=== PATIENT | male | born 1985 | race Caucasian/White ===

== ENCOUNTER 2018-11-13 21:07 | Emergency (ER) | payer MEDICARE, OTHER ==
[~2018-11-13] VITALS: Ht 177.8 cm; Wt 81.6 kg
--- NOTE | 2018-11-13 21:23 | PHYS DOC ---
Adult General Chief Complaint Chief Complaint: CHEST PAIN HPI HPI Patient is a 33-year-old male who presents with complaint of chest pain or shortness of breath for the last few weeks. Patient indicates that he was recently seen at the [facility] for the same complaint and states that they did tests to include x-rays but he states that they didn't tell him anything or do anything about it. When asked if they found nothing wrong, patient responded that he guesses that they didn't find anything because they didn't tell him anything. Patient rates pain as moderate stating that it feels like he just can't breathe. He denies any nausea, vomiting or diaphoresis. He also indicates that he has had a cough that is dry. He denies any lower extremity pain or swelling. Patient states that nothing improves the symptoms and exertion worsens the symptoms.[] Review of Systems Review of Systems Constitutional: Denies fever or chills [] Respiratory: Positive cough and shortness of breath [] Cardiovascular: No additional information not addressed in HPI [] GI: Denies abdominal pain, nausea, vomiting or diarrhea [] Integument: Denies rash or skin lesions [] Neurologic: Denies headache, focal weakness or sensory changes [] All other systems were reviewed and found to be within normal limits, except as documented in this note. Allergies Allergies Allergies Coded Allergies Type Severity Reaction Last Updated Verified No Known Drug Allergies 11/13/18 No Physical Exam Physical Exam Constitutional: Well developed, well nourished, no acute distress, non-toxic appearance. [] HENT: Normocephalic, atraumatic, bilateral external ears normal, oropharynx moist, no oral exudates, nose normal. [] Eyes: PERRLA, EOMI, conjunctiva normal, no discharge. [] Neck: Normal range of motion, no tenderness, supple, no stridor. [] Cardiovascular: Regular rate and rhythm[] Lungs & Thorax: Bilateral breath sounds clear to auscultation [] Abdomen: Bowel sounds normal, soft, no tenderness. [] Skin: Warm, dry, no erythema, no rash. [] Extremities: No tenderness, no cyanosis, no clubbing, ROM intact, no edema. [] Neurologic: Alert and oriented X 3, no focal deficits noted. [] EKG EKG EKG demonstrates normal sinus rhythm with rate of 76.[] Radiology/Procedures Radiology/Procedures [] Impressions: PROCEDURE: CHEST PA & LATERAL CHEST PA LATERAL History: Chest pain Comparison: None. Findings: No consolidation or pleural effusion. Normal heart size. Impression: 1. No acute cardiopulmonary process. Electronically signed by: Riley Mckenzie DO (11/13/2018 9:53 PM) [facility] Course & Med Decision Making Course & Med Decision Making Pertinent Labs and Imaging studies reviewed. (See chart for details) [] Dragon Disclaimer Dragon Disclaimer This electronic medical record was generated, in whole or in part, using a voice recognition dictation system. Departure Departure: Impression: Primary Impression: Atypical chest pain Additional Impression: Cough Disposition: 01 HOME, SELF-CARE Condition: STABLE Patient Instructions: Chest Pain (Nonspecific), Cough, Adult Problem Qualifiers KETURAH PEACOCK Jr., DO Nov 13, 2018 21:23
[2018-11-13] MEDS ORDERED: IV NORMAL SALINE 1,000ML 1,000 ML IV SCH (21:30)
[2018-11-13 21:54] LABS: BASO % 1 % (0-3); EOS # 0.1 x10^3/uL (0.0-0.7); EOS % 2 % (0-3); HEMATOCRIT 48.7 % (39.0-53.0); HEMOGLOBIN 16.4 g/dL (13.0-17.5); LYMPH # 2.4 x10^3/uL (1.0-4.8); LYMPH % 33 % (24-48); MEAN CORPUSCULAR HEMOGLOBIN 32 pg (25-35); MEAN CORPUSCULAR HGB CONC 34 g/dL (31-37); MEAN CORPUSCULAR VOLUME 95 fL (79-100); MONO # 0.7 x10^3/uL (0.0-1.1); MONO % 10 % (0-9); NEUT % 55 % (31-73); PLATELET COUNT 187 x10^3/uL (140-400); RED BLOOD COUNT 5.11 x10^6/uL (4.30-5.70); RED CELL DISTRIBUTION WIDTH 13.5 % (11.5-14.5); WHITE BLOOD COUNT 7.3 x10^3/uL (4.0-11.0)
--- NOTE | 2018-11-13 21:56 | RAD ---
CHEST PA LATERAL History: Chest pain Comparison: None. Findings: No consolidation or pleural effusion. Normal heart size. Impression: 1. No acute cardiopulmonary process. Electronically signed by: Riley Mckenzie DO (11/13/2018 9:53 PM) [facility]
[2018-11-13 21:58] LABS: BARBITURATES NEG (NEG); BENZODIAZEPINES NEG (NEG); CANNABINOIDS NEG (NEG); COCAINE NEG (NEG); METHADONE NEG (NEG); OPIATES NEG (NEG); PHENCYCLIDINE NEG (NEG)
[2018-11-13 22:03] LABS: AMPHETAMINE/METHAMPHETAMINE NEG (NEG)
[2018-11-13 22:11] LABS: BILIRUBIN,URINE NEG (NEG); CLARITY,URINE CLEAR; COLOR,URINE STRAW; GLUCOSE,URINE NEG (NEG)
[2018-11-13 22:12] LABS: BACTERIA,URINE 0 /HPF (0-FEW); NITRITE,URINE NEG (NEG); RBC,URINE 0 /HPF (0-2); SQUAMOUS EPITHELIAL CELL,UR OCC /LPF; UROBILINOGEN,URINE 0.2 mg/dL (0.2 mg/dL); WBC,URINE 0 /HPF (0-4)
[2018-11-13 22:24] LABS: ALBUMIN 4.5 g/dL (3.4-5.0); ALBUMIN/GLOBULIN RATIO 1.4 (1.0-1.7); CALCIUM 9.2 mg/dL (8.5-10.1); CREATININE 1.2 mg/dL (0.7-1.3); GFR 69.3; MAGNESIUM 2.4 mg/dL (1.8-2.4); POTASSIUM 3.7 mmol/L (3.5-5.1); TOTAL BILIRUBIN 0.6 mg/dL (0.2-1.0); TOTAL PROTEIN 7.8 g/dL (6.4-8.2)
[2018-11-13 22:48] VITALS: BP 127/72
--- NOTE | 2018-11-14 12:16 | EKG ---
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
== END 2018-11-13 23:28 | disposition home or self-care (01) ==
LOC: ER 21:07
DX: R07.89 Other chest pain (principal); R06.02 Shortness of breath
CPT/HCPCS: 36415; 71046; 80053; 80307; 81001; 83690; 83735; 83880; 84443; 84484; 85025; 85379; 93005; 99285-25; J7030

== ENCOUNTER 2019-06-02 19:44 | Emergency (ER) | payer OTHER ==
[~2019-06-02] VITALS: Ht 177.8 cm; Wt 81.0 kg
--- NOTE | 2019-06-02 19:46 | PHYS DOC ---
Past History Past Medical History: No Pertinent History Past Surgical History: Other Additional Past Surgical Histo: DISC REPLACEMENT X 2 Alcohol Use: Occasionally Drug Use: None Adult General Chief Complaint Chief Complaint: "..I ve been sick the last three days.. Cough, fever or chills,,.. Green sputum... Congestion runny nose... And now chest pain all day... Here on the left... Is somewhat like when I was here before and he checked me out in October..." [facility] HPI Patient is a 33 year old male who presents with above hx and complaints productive cough with green sputum, myalgia, malaise, congestion, rhinorrhea, sore throat, arthralgia, and now left-sided chest pain. Chest pain is non radiating. There is reproducible with cough. Localized to the left pectoral anterior axillary line on left. No history of trauma. Patient unsure if he had a flu vaccination this season. No recent travel outside of the [place] area. No specific ill contacts. Patient does not smoke. No previous history of DVT or pulmonary embolism. Is unsure of his family history but thinks his grandfather had an CO at age 65-70. Patient is adopted no family history. Patient currently works at the [employer] [facility] [employer] [facility]. Patient denies any history immunosuppression. Pt. last seen 11/13/2018 for Atypical Chest pain and cough. Pt has hx of possible sleep disorder and sleep apnea. Pt. 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 Review of Systems Review of Systems Constitutional: Subjective history of fever or chills [] Eyes: Denies change in visual acuity, redness, or eye pain [] HENT: Complaints of nasal congestion and sore throat [] Respiratory: Complaints of cough, wheezing and shortness of breath [] Cardiovascular: No additional information not addressed in HPI [] GI: Denies abdominal pain, nausea, vomiting, bloody stools or diarrhea [] : Denies dysuria or hematuria [] Musculoskeletal: Denies back pain or joint pain [] Integument: Denies rash or skin lesions [] Neurologic: Denies headache, focal weakness or sensory changes [] Endocrine: Denies polyuria or polydipsia [] All other systems were reviewed and found to be within normal limits, except as documented in this note. Family History Family History Grandfather had heart attack at age 65-70. Limited family history because he is adopted Current Medications Current Medications See nursing for home meds Allergies Allergies Allergies Coded Allergies Type Severity Reaction Last Updated Verified No Known Drug Allergies 11/13/18 No Physical Exam Physical Exam Constitutional: Well developed, well nourished, moderate acute distress, non- toxic appearance. [] HENT: Normocephalic, atraumatic, bilateral external ears normal, oropharynx moist, injected pharynx with postnasal drainage, no oral exudates, nose swollen turbinates and clear rhinorrhea Eyes: PERRLA, EOMI, conjunctiva normal, no discharge. [] Neck: Normal range of motion, no tenderness, supple, no stridor. Old surgery scar. Cardiovascular: Bradycardia Heart rate regular rhythm, no murmur [] Lungs & Thorax: Bilateral breath sounds equal apexes with only a few scattered wheezes auscultation [] Abdomen: Bowel sounds normal, soft, no tenderness, no masses, no pulsatile masses. [] Skin: Warm, dry, no erythema, no rash. [] Back: No tenderness, no CVA tenderness. [] Extremities: No tenderness, no cyanosis, no clubbing, ROM intact, no edema. [] No cording in legs appreciated Neurologic: Alert and oriented X 3, normal motor function, normal sensory function, no marked focal deficits noted. DTR + 2 brachial and patella. Ambulatory without problems. ( Does have hx of some neuropathy in Rt. arm from previous neck injury and surgery.) Psychologic: Affect anxious, judgement normal, mood normal. [] EKG EKG My interpretation EKG shows a sinus bradycardia 58 bpm. Does have a right bundle-branch block. Similar contour abnormalities anterior lateral leads. But no findings of acute STEMI with contralateral changes.[] Radiology/Procedures Radiology/Procedures [Reviewed reading of chest x-ray. Does have findings of neck surgery and object in left axillary area.] [address] [address] IMAGING REPORT Signed PATIENT: JOVANY SRIVASTAVA: [id number] : 1985 LOCATION: ER AGE: 33 SEX: M EXAM STATUS: REG ER ORD. PHYSICIAN: ZULEYMA CLAIRE MD REASON: Ekg cp PROCEDURE: CHEST PA & LATERAL CHEST PA LATERAL History: Chest pain Comparison: November 13, 2018 Findings: 2 views of the chest are submitted. There is no infiltrate, pneumothorax, or effusion. Pericardial cardiac silhouette is within normal limits in size. Impression: 1. There is no radiographic evidence of acute cardiopulmonary disease. Electronically signed by: Donna Tadeo MD (06/02/2019 8:40 PM) [facility] DICTATED AND SIGNED BY: DONNA TADEO MD DATE: 06/02/192039 CC: ZULEYMA CLAIRE MD; PCP,NO ~ Course & Med Decision Making Course & Med Decision Making Pertinent Labs and Imaging studies reviewed. (See chart for details) Pt. to alf at home. To practice social distance. Patient to follow-up primary care. Use MDI 2 puffs 4 times a day. May use Benadryl 25-50 mg up 4 times a day for cough. Fluids. Gargle with Listerine. Return if any concerns. Consider out pt. stress testing. Followup with Neurology/Neurosurgery. Follow with [facility] for up to date information on Covid 19. Impression: 1. Viral syndrome 2. Elevated monocytes 10 3. Elevated ALT= 73 4. Chest wall pain 5. Hx.of Cervical Neuropathy and Prior Fusion [] Dragon Disclaimer Dragon Disclaimer This electronic medical record was generated, in whole or in part, using a voice recognition dictation system. Departure Departure: Disposition: HOME/RESIDENCE PRIOR TO ADM Condition: STABLE Referrals: PCP,NO (PCP) Scripts Albuterol Sulfate (VENTOLIN HFA INHALER) 18 Gm Hfa.aer.ad 2 PUFF IH PRN Q4HRS PRN for FOR ASTHMA for 30 Days, INHALER 0 Refills Prov: ZULEYMA CLAIRE MD 06/02/19 COVID-19 Assessment COVID-19 Patient Risks: Age 65 or older: No Sign of co-morbidity: No Exp to person + for COVID: No Exp to PUI: No Travel from affected area: No Lower respiratory symptoms: Yes Fever: Yes Comments: Subjective fever, chest wall pain, green sputum. Use PPE that was available, hat, face mask N-95 shield, gloves, shoe cover and the yellow gown. Dragon Disclaimer This chart was dictated in whole or in part using Voice Recognition software in a busy, high-work load, and often noisy Emergency Department environment. It may contain unintended and wholly unrecognized errors or omissions. ZULEYMA CLAIRE MD Jun 02, 2019 19:46
[2019-06-02 19:57] VITALS: BP 153/97
[2019-06-02] MEDS ORDERED: IPRATRPIUM/ALBUTEROL 0.5/2.5MG 3 ML NEBU. NEB ONE (20:00)
[2019-06-02] MEDS ORDERED: IV RINGERS SOLUTION,LACTATED 1,000 ML IV SCH (20:00)
[2019-06-02] MEDS ORDERED: ASPIRIN 325 MG TABLET PO ONE (20:15)
[2019-06-02 20:31] LABS: BASO # 0.1 x10^3/uL (0.0-0.2); BASO % 1 % (0-3); EOS # 0.1 x10^3/uL (0.0-0.7); EOS % 1 % (0-3); HEMATOCRIT 48.8 % (39.0-53.0); HEMOGLOBIN 16.6 g/dL (13.0-17.5); LYMPH # 2.2 x10^3/uL (1.0-4.8); LYMPH % 25 % (24-48); MEAN CORPUSCULAR HEMOGLOBIN 32 pg (25-35); MEAN CORPUSCULAR HGB CONC 34 g/dL (31-37); MEAN CORPUSCULAR VOLUME 94 fL (79-100); MONO # 0.9 x10^3/uL (0.0-1.1); MONO % 10 % (0-9); NEUT # 5.7 x10^3uL (1.8-7.7); NEUT % 64 % (31-73); PLATELET COUNT 201 x10^3/uL (140-400); RED BLOOD COUNT 5.17 x10^6/uL (4.30-5.70); RED CELL DISTRIBUTION WIDTH 13.5 % (11.5-14.5)
[2019-06-02 20:37] LABS: CALCIUM 9.5 mg/dL (8.5-10.1); GFR 85.5; POTASSIUM 3.8 mmol/L (3.5-5.1)
--- NOTE | 2019-06-02 20:43 | RAD ---
CHEST PA LATERAL History: Chest pain Comparison: November 13, 2018 Findings: 2 views of the chest are submitted. There is no infiltrate, pneumothorax, or effusion. Pericardial cardiac silhouette is within normal limits in size. Impression: 1. There is no radiographic evidence of acute cardiopulmonary disease. Electronically signed by: Félix Cannon MD (06/02/2019 8:40 PM) [facility]
[2019-06-02 20:49] LABS: ALBUMIN 4.4 g/dL (3.4-5.0); DIRECT BILIRUBIN 0.1 mg/dL (0.0-0.2); TOTAL BILIRUBIN 0.4 mg/dL (0.2-1.0); TOTAL PROTEIN 7.8 g/dL (6.4-8.2)
[2019-06-02 20:57] LABS: INFLUENZA A PATIENT NEGATIVE (NEGATIVE); INFLUENZA B PATIENT NEGATIVE (NEGATIVE)
[2019-06-02 21:03] LABS: BARBITURATES NEG (NEG); BENZODIAZEPINES NEG (NEG); BILIRUBIN,URINE NEG (NEG); CANNABINOIDS POS (NEG); CLARITY,URINE CLEAR; COCAINE NEG (NEG); COLOR,URINE YELLOW; GLUCOSE,URINE NEG (NEG); METHADONE NEG (NEG); OPIATES NEG (NEG); PHENCYCLIDINE NEG (NEG)
[2019-06-02 21:04] LABS: BACTERIA,URINE 0 /HPF (0-FEW); NITRITE,URINE NEG (NEG); RBC,URINE 0 /HPF (0-2); UROBILINOGEN,URINE 0.2 mg/dL (0.2 mg/dL); WBC,URINE OCC /HPF (0-4)
[2019-06-02 21:08] LABS: AMPHETAMINE/METHAMPHETAMINE NEG (NEG)
[2019-06-02] MEDS ORDERED: ALBU2.5V8 IH (21:27)
[2019-06-02] MEDS ORDERED: KETOROLAC 30 MG/ML VIAL. IVP ONE (21:30)
--- NOTE | 2019-06-05 12:12 | EKG ---
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
== END 2019-06-02 21:58 | disposition home or self-care (01) ==
LOC: ER 19:44
DX: B34.9 Viral infection, unspecified (principal); R07.89 Other chest pain; D72.821 Monocytosis (symptomatic); R79.89 Other specified abnormal findings of blood chemistry
CPT/HCPCS: 36415; 71046; 80048; 80076; 80307; 81001; 82550; 83690; 83735; 83880; 84443; 84484; 85025; 85379; 85610; 85730; 87070; 87804; 87880; 93005; 94640; 96374; 99285; J1885; J7120